=== PATIENT | male | born 1960 | race African-American/Black ===

== ENCOUNTER 2019-07-13 02:11 | Emergency (ER) | payer MEDICARE ==
[~2019-07-13] VITALS: Ht 175.3 cm; Wt 72.6 kg
[2019-07-13] MEDS ORDERED: diphenhdrAMINE HCL 50 MG/1 ML VL IV ONE (03:30)
[2019-07-13 03:37] LABS: Basophils # (auto) 0 uL; Basophils % (auto) 0.5 % (0.0-2.0); Eosinophils # (auto) 0.3 uL; Eosinophils % (auto) 4.9 % (0.0-7.0); Hemoglobin 11.6 g/dL (13.5-17.5); Lymphocytes # (auto) 1.1 uL; Lymphocytes % (auto) 15.5 % (10.0-50.0); Mean Corpuscular Hemoglobin 30.7 pg (28.0-32.0); Mean Corpuscular Hgb Conc. 34.2 g/dL (32.0-36.0); Mean Corpuscular Volume 89.7 fL (80.0-100.0); Monocytes # (auto) 0.3 uL; Monocytes % (auto) 4.1 % (0.0-12.0); Neutrophils # (auto) 5.3 uL; Platelet Count (auto) 166 10^3/uL (140-450); Red Blood Cells 3.79 10^6/uL (4.5-5.90); Red Cell Distribution Width 17.7 % (11.8-14.3)
[2019-07-13 03:56] LABS: Albumin 3.7 g/dL (3.4-5.0); Calcium 7.8 mg/dL (8.5-10.1); Magnesium 2.8 mg/dL (1.6-2.6)
[2019-07-13 04:01] LABS: BUN/Creatinine Ratio 4.3; Bilirubin, Total 0.5 mg/dL (0.2-1.0); Total Protein 7.7 g/dL (6.4-8.2)
[2019-07-13 04:16] LABS: Potassium 6.3 mmol/L (3.5-5.1)
[2019-07-13] MEDS ORDERED: ALBUTEROL SULF 2.5 MG/0.5ML(0.5%) NEB SOLN NEB ONE (04:30)
[2019-07-13] MEDS ORDERED: SODIUM BICARBONATE 8.4% INJ 50ML SYRINGE IV ONE (04:30)
[2019-07-13] MEDS ORDERED: InsuLIN REG 1unit/0.01ml Soln (100units/ml) IV ONE (04:30)
[2019-07-13] MEDS ORDERED: DEXTROSE (50%) 50ML SYRG IV ONE (04:30)
[2019-07-13 04:32] LABS: INR 1.13 (0.9-1.15); Partial Thromboplastin Time 28.5 sec (23.64-32.05)
[2019-07-13 05:29] VITALS: BP 153/88
[2019-07-13 06:16] LABS: Albumin 3.5 g/dL (3.4-5.0); Calcium 7.8 mg/dL (8.5-10.1); Potassium 4.6 mmol/L (3.5-5.1)
[2019-07-13 06:18] LABS: BUN/Creatinine Ratio 4.3
[2019-07-13 06:21] LABS: Bilirubin, Total 0.5 mg/dL (0.2-1.0); Total Protein 7.1 g/dL (6.4-8.2)
[2019-07-13] MEDS ORDERED: LORazepam 2MG/ML-1ML VIAL IV ONE (06:30)
== END 2019-07-13 07:04 | disposition home or self-care (01) ==
LOC: EDBD 02:11 → ER 02:14
DX: F44.9 Dissociative and conversion disorder, unspecified (principal); F41.9 Anxiety disorder, unspecified; I10 Essential (primary) hypertension
CPT/HCPCS: 36415; 71045; 80053; 83735; 83880; 84484; 85025; 85379; 85610; 85730; 93005; 94640; 96374; 96375; 99284; J1200; J1815; J2060; J7042; J7611; 94644

== ENCOUNTER 2019-07-24 14:54 | Emergency (ER) | payer MEDICARE, MEDICAID ==
[~2019-07-24] VITALS: Ht 180.3 cm; Wt 86.2 kg
[2019-07-24] MEDS ORDERED: KETOROLAC TROMETH 30 MG/ML 1ML VIAL IV ONE (20:45)
[2019-07-24] MEDS ORDERED: cefTRIAXone 1GM/50ML D5W 50 ML IV ONE (20:45)
[2019-07-24] MEDS ORDERED: cefTRIAXone SOD 1,000 MG VL IM ONE (21:45)
[2019-07-24] MEDS ORDERED: KETOROLAC TROMETH 60MG/2ML VIAL IM ONE (21:45)
[2019-07-24] MEDS ORDERED: LIDOCAINE 1% HCL (LOCAL ANESTH.) INJ 20ML MDV IJ ONE (21:45)
[2019-07-24 22:17] VITALS: BP 142/80
== END 2019-07-24 22:47 | disposition home or self-care (01) ==
LOC: EDBD 14:54 → ER 15:02
DX: S02.652A Fracture of angle of left mandible, initial encounter for closed fracture (principal); I12.0 Hypertensive chronic kidney disease with stage 5 chronic kidney disease or end stage renal disease; N18.6 End stage renal disease; Y04.2XXA Assault by strike against or bumped into by another person, initial encounter; Y93.89 Activity, other specified; Y92.89 Other specified places as the place of occurrence of the external cause; Y99.8 Other external cause status
CPT/HCPCS: 70486; 96372; 99284; J0696; J1885; J2001

== ENCOUNTER 2019-12-08 01:19 | Inpatient (IN) | payer MEDICARE, MEDICAID ==
[~2019-12-08] VITALS: Ht 172.7 cm; Wt 72.8 kg
[2019-12-08] VITALS (24 sets, daily range): BP systolic 91–129; BP diastolic 47–83
[2019-12-08 02:36] LABS: Basophils # (auto) 0 10 ^3/uL (0-0.2); Basophils % (auto) 0.2 % (0.0-2.0); Eosinophils # (auto) 0 10 ^3/uL (0-0.8); Eosinophils % (auto) 0.3 % (0.0-7.0); Hematocrit 32.4 % (41.0-53.0); Hemoglobin 10.4 g/dL (13.5-17.5); Lymphocytes # (auto) 0.8 10 ^3/uL (0.4-5.4); Lymphocytes % (auto) 13.2 % (10.0-50.0); Mean Corpuscular Hemoglobin 28.6 pg (28.0-32.0); Mean Corpuscular Hgb Conc. 32.2 g/dL (32.0-36.0); Mean Corpuscular Volume 88.7 fL (80.0-100.0); Monocytes # (auto) 0.4 10 ^3/uL (0-1.3); Monocytes % (auto) 7.2 % (0.0-12.0); Neutrophils # (auto) 4.9 10 ^3/uL (1.6-8.6); Neutrophils % (auto) 79.1 % (37.0-80.0); Nucleated Red Blood Cells % 0.2 %; Platelet Count (auto) 209 10^3/uL (140-450); Red Blood Cells 3.65 10^6/uL (4.5-5.90); Red Cell Distribution Width 19.7 % (11.8-14.3); White Blood Cell 6.3 10^3/uL (4.4-10.8)
[2019-12-08 02:39] LABS: Calcium 9.1 mg/dL (8.5-10.1); Magnesium 2.6 mg/dL (1.6-2.6)
[2019-12-08 02:42] LABS: BUN/Creatinine Ratio 5.6
[2019-12-08 02:46] LABS: Total Protein 8.7 g/dL (6.4-8.2)
[2019-12-08 03:50] LABS: INR 1.46 (0.9-1.15); Partial Thromboplastin Time 31.7 sec (23.64-32.05)
[2019-12-08] MEDS: SODIUM CHLORIDE 0.9% 250 ML IV ONE ×2 (08:09→11:10)
[2019-12-08] MEDS ORDERED: FUROSEMIDE 40 MG/4 ML VIAL IV ONE (08:15)
[2019-12-08 10:32] LABS: Lactic Acid w/Reflex 4.1 mmol/L (0.4-2.0)
[2019-12-08] MEDS ORDERED: MORPHINE SULF INJ 2 MG/ML SYRINGE 1ML IV ONE (11:00)
[2019-12-08] MEDS ORDERED: ONDANSETRON HCL 4 MG/2 ML VIAL IV ONE (11:00)
[2019-12-08] MEDS ORDERED: ACETAMINOPHEN 500 MG TAB PO ONE (13:15)
[2019-12-08] MEDS ORDERED: KETOROLAC TROMETH 30 MG/ML 1ML VIAL IV ONE (14:15)
[2019-12-08] MEDS ORDERED: DEXTROSE (50%) 50ML SYRG IV PRN (14:15)
[2019-12-08] MEDS ORDERED: NITROGLYCERIN 0.4 MG SL TAB SL PRN (14:15)
[2019-12-08] MEDS ORDERED: MORPHINE SULF INJ 2 MG/ML SYRINGE 1ML IV PRN (14:15)
[2019-12-08] MEDS ORDERED: SODIUM CHLORIDE 0.9% 250 ML IV ONE (14:30)
[2019-12-08] MEDS ORDERED: cefTRIAXone 1GM/50ML D5W 50 ML IV ONE (14:30)
[2019-12-08] MEDS ORDERED: MIDAZOLAM HCL 1MG/1ML-2 ML VIAL IV ONE (14:30)
[2019-12-08] MEDS ORDERED: fentaNYL CITRATE 100 MCG/2 ML VL ONE (14:55)
[2019-12-08] MEDS ORDERED: MIDAZOLAM HCL 1MG/1ML-2 ML VIAL ONE (14:55)
[2019-12-08] MEDS: InsuLIN REG 1unit/0.01ml Soln (100units/ml) SC SCH ×2 (17:00→22:00)
[2019-12-08] MEDS: ACCU-CHEK COMFORT CURVE STRIP VI SCH ×3 (17:11→22:37)
--- NOTE | 2019-12-08 17:50 | NUR ---
Pt being admitted to ICU JIMBOVIVIANE TATUM admitted to ICU via gurney on habilitative interventionist, and portable 02. Patient transferred to bed, connected to ICU monitoring and oxygen, and weighed by bedscale. Patient oriented to Rissa Johnston, primary RN, unit, room, bed, and unit policies regarding patient care and visiting hours. All questions and concerns addressed, patient verbalized understanding. Pericardial drain moted to medial chest draining bloody drainage. Patient has no complaints of chest pain at this time. Call light in reach, bed in low position. Will continue to monitor.
--- NOTE | 2019-12-08 19:30 | NUR ---
LEFT MESSAGE FOR [facility] PATIENTS NEXT OF KIN PER PATIENTS REQUEST.
--- NOTE | 2019-12-08 20:00 | NUR ---
ADMITTED ON 12/08/2019 WITH DYSPNEA FOR 2 WEEKS, GENERAL BODY ACHES, ANXIETY, AND HYPOTENSION. CXR REVEALED A PERICARDIAL EFFUSION. PROGRAM TECHNICIAN PLACED A PERICARDIAL DRAIN. DRAINING BLOODY FLUID. PATIENT IS A DIALYSIS PATIENT AND HIS LAST DIALYSIS SESSION WAS YESTERDAY. COVID, STREP AND INFLUENZA NEGATIVE. HAS A REJI FISTULA FOR DIALYSIS.RAC 20G WITH NO FLUID RUNNING. RENAL DIET FOR DINNER , ATE 80%.2LNP. PENDING ECHOCARDIOGRAM RESULTS.VSS. SINUS TACHYCARDIA. NORMOTENSIVE. LOW NA 128. PENDING VQ SCAN
--- NOTE | 2019-12-08 20:15 | NUR ---
IN SPEAKING WITH THE PATIENT, DENIES CHEST PAIN, NAUSEA, DSPNEA. LUNGS CLEAR. 2LNP. HUNGRY. PERICARDIAL DRAIN. CURRENTLY NO DRNG IN BAG. DENIES HAVING THE MIGRAINE HE CAME IN WITH , DYSPNEA, LOSS OF TASTE HE WAS HAVING.
--- NOTE | 2019-12-08 23:00 | NUR ---
REQUESTING SOMETHING FOR SLEEP, BUT EVERY TIME I GO IN , HE IS SLEEPING. DENIES PAIN, NAUSEA, DYSPNEA, MIGRAINES. CHANGES POSITION FREQUENTLY. RESTLESS WHILE HE SLEEPS
[2019-12-09] VITALS (82 sets, daily range): BP systolic 90–128; BP diastolic 49–82
--- NOTE | 2019-12-09 | NUR ---
SMALL AMOUNT OF BLOOD IN PERICARDIAL DRAIN BAG. VSS. DRAIN SITE SHOWS NO REDNESS OR SWELLING. ALERT. ORIENTED. MONTES DE OCA WELL. IV SITE SHOWS NO REDNESS OR SWELLING. SINUS TACHYCARDIA WITHOUT ECTOPY.
--- NOTE | 2019-12-09 02:00 | NUR ---
CHECKED DRAIN SITE. NO DRNG FROM THE INSERTION POINT. RED DRNG IN BAG (SMALL AMOUNT). PATIENT MOVES AROUND IN BED FREQUENTLY. SINUS TACHYCARDIA 100, NO ECTOPY. SBP STABLE. IV SITE FLUSHED AND SECURE MORE WITH COBAN.
--- NOTE | 2019-12-09 03:00 | NUR ---
AM LABS DRAWN
[2019-12-09 04:46] LABS: Albumin 2.9 g/dL (3.4-5.0); Calcium 9.1 mg/dL (8.5-10.1); Potassium 5.1 mmol/L (3.5-5.1)
[2019-12-09 04:47] LABS: Basophils # (auto) 0 10 ^3/uL (0-0.2); Basophils % (auto) 0.4 % (0.0-2.0); Eosinophils # (auto) 0 10 ^3/uL (0-0.8); Eosinophils % (auto) 0.1 % (0.0-7.0); Hematocrit 31.6 % (41.0-53.0); Hemoglobin 10.3 g/dL (13.5-17.5); Lymphocytes # (auto) 0.7 10 ^3/uL (0.4-5.4); Lymphocytes % (auto) 8.8 % (10.0-50.0); Mean Corpuscular Hemoglobin 28.5 pg (28.0-32.0); Mean Corpuscular Hgb Conc. 32.6 g/dL (32.0-36.0); Mean Corpuscular Volume 87.5 fL (80.0-100.0); Monocytes # (auto) 0.7 10 ^3/uL (0-1.3); Monocytes % (auto) 7.9 % (0.0-12.0); Neutrophils # (auto) 7.1 10 ^3/uL (1.6-8.6); Neutrophils % (auto) 82.8 % (37.0-80.0); Nucleated Red Blood Cells % 0.4 %; Platelet Count (auto) 193 10^3/uL (140-450); Red Blood Cells 3.61 10^6/uL (4.5-5.90); Red Cell Distribution Width 19.3 % (11.8-14.3); White Blood Cell 8.5 10^3/uL (4.4-10.8)
[2019-12-09 04:58] LABS: BUN/Creatinine Ratio 7.2; Bilirubin, Total 1.2 mg/dL (0.2-1.0)
[2019-12-09] MEDS: InsuLIN REG 1unit/0.01ml Soln (100units/ml) SC SCH ×4 (05:54→21:43)
--- NOTE | 2019-12-09 06:00 | NUR ---
PERICARDIAL DRAIN: 15CC OF RED LIQUID. ACCUCHECK 77, APPLE JUICE GIVEN
--- NOTE | 2019-12-09 07:15 | NUR ---
REPORT RECEIVED FROM MECHANICAL MAINTENANCE NURSE. PATIENT RESTING IN BED AT THIS TIME. RESPIRATIONS EVEN AND UNLABORED. NO SIGNS OF ACUTE DISTRESS NOTED. PERICARDIAL DRAIN IN MEDIAL CHEST WITH NO NOTED DRAINAGE AT THIS TIME. BED IN LOW POSITION, CALL LIGHT IN REACH, BED IN LOW POSITION. WILL CONTINUE TO MONITOR.
[2019-12-09] MEDS: cefTRIAXone 1GM/50ML D5W 50 ML IV SCH (09:11)
--- NOTE | 2019-12-09 11:00 | NUR ---
IV removal IV DC'd from right AC with clean sterile technique, catheter fully intact. Pressure dressing applied to site. Patient tolerated well. IV insertion IV access obtained, via clean sterile technique by inserting 20 gauge catheter at right forearm after 3 attempts. IV secured properly. No trauma to site. Patient tolerated well.
--- NOTE | 2019-12-09 11:05 | NUR ---
DIALYSIS NURSE AT BEDSIDE TO START DIALYSIS PER MD ORDER.
[2019-12-09] MEDS: ACCU-CHEK COMFORT CURVE STRIP VI SCH ×3 (11:30→21:43)
[2019-12-09 12:00] LABS: Albumin 2.7 g/dL (3.4-5.0); Calcium 9.2 mg/dL (8.5-10.1); Potassium 4.8 mmol/L (3.5-5.1)
[2019-12-09] MEDS ORDERED: SODIUM CHL 0.9% 1000 ML BAG XX ONE (12:00)
[2019-12-09 12:07] LABS: BUN/Creatinine Ratio 7.7; Bilirubin, Total 1.1 mg/dL (0.2-1.0); CRP High Sensitivity 7.61 mg/dL (< 0.3); Total Protein 7.5 g/dL (6.4-8.2)
[2019-12-09 12:11] LABS: Hepatitis B Surface Antibody Positive
[2019-12-09 12:50] LABS: Hepatitis A Total Antibody Positive
[2019-12-09 13:30] LABS: Hepatitis B Surface Antigen Negative (Negative)
[2019-12-09 13:31] LABS: Hepatitis A Ab IgM Negative
[2019-12-09 13:32] LABS: Hepatitis B Core IgM Negative
[2019-12-09 13:36] LABS: Hepatitis B Core Total AB Positive; Hepatitis C Antibody Positive (Negative)
--- NOTE | 2019-12-09 14:25 | NUR ---
DIALYSIS COMPLETED 3 LITERS REMOVED. PATIENT TOLERATED WELL. VITAL SIGNS ALL WITHIN NORMAL RANGE.
[2019-12-09] MEDS: MORPHINE SULF INJ 2 MG/ML SYRINGE 1ML IV PRN ×2 (14:43→20:12)
--- NOTE | 2019-12-09 14:50 | NUR ---
SPOKE TO DR PATTERSON AND INFORMED MD PATIENT HAS HAD NO DRAINAGE FROM PERICARDIAL DRAIN. PER MD WILL COME TO REMOVE.
--- NOTE | 2019-12-09 17:01 | NUR ---
PATIENT REFUSED INSULIN. PATIENT REFUSED 2 UNITS OF INSULIN AT 1200 AND 1700. EDUCATED PATIENT ON IMPORTANCE OF REMAINING COMPLIANT, PATIENT STILL DECLINED INSULIN AT THIS TIME.
--- NOTE | 2019-12-09 18:00 | NUR ---
NO DRAINAGE NOTED FROM PERICARDIAL DRAIN THIS 12 HOUR SHIFT.
--- NOTE | 2019-12-09 19:00 | NUR ---
Report received from COCO Najera. Patient has Pericardial Drain intact to medial chest site. Dr. Dick will come to discontinue Pericardial Drain. Will continue with POC; and, will continue to monitor VS & clinical status. Patient complaining of pain 9/10 per report.
--- NOTE | 2019-12-09 19:35 | NUR ---
Upon initial interview and assessment, patient complain of back pain 03/09. Patient instructed account underwriter will medicate him. Addendum: 12/10/19 at 0241 by Garth Huertas RN Patient asked account underwriter what pain medications he has ordered and how often he can get the pain medication. Patient educated he only has Morphine every 4 hours as needed for pain.
--- NOTE | 2019-12-09 20:00 | NUR ---
Snacks given: Gram Crackers.
--- NOTE | 2019-12-09 20:12 | NUR ---
Patient medicated with Morphine 2 mg IVP for 9/10 back pain.
[2019-12-09] MEDS ORDERED: EPOETIN ALFA 4,000 UNIT/ML VL SC ONE (21:00)
--- NOTE | 2019-12-09 21:09 | NUR ---
Patient refused medication after scanning med. Charger unable to Non-Admin medication.
--- NOTE | 2019-12-09 21:43 | NUR ---
Patient refused accucheck, stating he does not want the needle prick; also, unable to give Sliding Scale Regular Insulin units if needed as patient request.
[2019-12-10] VITALS (48 sets, daily range): BP systolic 90–137; BP diastolic 54–90
[2019-12-10] MEDS: MORPHINE SULF INJ 2 MG/ML SYRINGE 1ML IV PRN ×6 (00:42→22:52)
--- NOTE | 2019-12-10 00:42 | NUR ---
Upon entering patient room to medicate patient with Morphine 2 mg VIP, Patient angry due to not responding immediately to his pain seeking drug for pain. Patient states he does not designer/writer to care for him and demanding to speak with CN. Patient instructed designer/writer was caring for another patient under designer/writer care and was involved in the care. Patient refusing medication by designer/writer. ALEXYS Galaviz notified.
--- NOTE | 2019-12-10 00:50 | NUR ---
CN Galaviz at bedside. CN in discussion with patient. CN Galaviz medicate patient with Morphine 2 mg IVP.
--- NOTE | 2019-12-10 03:40 | NUR ---
Senior Java Web Developer at bedside. Blood collected and specimen sent to lab.
[2019-12-10 05:03] LABS: Basophils # (auto) 0 10 ^3/uL (0-0.2); Basophils % (auto) 0.5 % (0.0-2.0); Eosinophils # (auto) 0.1 10 ^3/uL (0-0.8); Hematocrit 32.2 % (41.0-53.0); Hemoglobin 10.4 g/dL (13.5-17.5); Lymphocytes # (auto) 0.7 10 ^3/uL (0.4-5.4); Lymphocytes % (auto) 11.5 % (10.0-50.0); Mean Corpuscular Hemoglobin 28.4 pg (28.0-32.0); Mean Corpuscular Hgb Conc. 32.3 g/dL (32.0-36.0); Mean Corpuscular Volume 88.1 fL (80.0-100.0); Monocytes # (auto) 0.5 10 ^3/uL (0-1.3); Monocytes % (auto) 8.8 % (0.0-12.0); Neutrophils # (auto) 4.8 10 ^3/uL (1.6-8.6); Neutrophils % (auto) 78.2 % (37.0-80.0); Nucleated Red Blood Cells % 0.3 %; Platelet Count (auto) 233 10^3/uL (140-450); Red Blood Cells 3.65 10^6/uL (4.5-5.90); Red Cell Distribution Width 19.5 % (11.8-14.3); White Blood Cell 6.1 10^3/uL (4.4-10.8)
--- NOTE | 2019-12-10 05:14 | NUR ---
Patient declines bath at this time.
[2019-12-10 05:21] LABS: Albumin 2.5 g/dL (3.4-5.0); Calcium 9.1 mg/dL (8.5-10.1); Potassium 4.3 mmol/L (3.5-5.1)
[2019-12-10 05:27] LABS: BUN/Creatinine Ratio 7.4; Bilirubin, Total 0.8 mg/dL (0.2-1.0); Total Protein 7.2 g/dL (6.4-8.2)
[2019-12-10] MEDS: InsuLIN REG 1unit/0.01ml Soln (100units/ml) SC SCH ×4 (07:00→21:47)
[2019-12-10] MEDS: ACCU-CHEK COMFORT CURVE STRIP VI SCH ×4 (07:00→21:47)
--- NOTE | 2019-12-10 07:50 | NUR ---
Assumed care of patient. Patient is AAOX4. Patient is attached to all bedside monitors. Vital signs are stable. No s/s of distress noted. Patient is resting in bed watching tv. Patient c/o generalized pain. Morphine 2mg IVP given. Midsternum pericardial drainage tube noted, no with drainage at this time. Patient advised of POC. Patient verbalized understanding. Safety maintained, will continue to monitor.
[2019-12-10] MEDS: cefTRIAXone 1GM/50ML D5W 50 ML IV SCH (09:02)
[2019-12-10] MEDS: SEVELAMER 800 MG TAB PO SCH ×3 (09:02→17:46)
--- NOTE | 2019-12-10 11:36 | NUR ---
Dr. Kirk at bedside.
--- NOTE | 2019-12-10 12:23 | NUR ---
Patient oob to chair. Sponge bath completed by patient by the sink. Linens changed. Patient denies pain. Safety maintained, will continue to monitor.
--- NOTE | 2019-12-10 13:11 | NUR ---
Lunch tray provided.
--- NOTE | 2019-12-10 14:07 | NUR ---
Dr. Dick at bedside. Pericardial drainage tube dc'd by .
--- NOTE | 2019-12-10 15:28 | NUR ---
Per Dr. Bob, may downgrade patient to telemetry.
--- NOTE | 2019-12-10 16:15 | NUR ---
SBAR report given to COCO [place].
--- NOTE | 2019-12-10 16:46 | NUR ---
PATIENT RESTING IN BED. RESPIRATIONS EVEN AND UNLABORED. A&OX4. PATIENT SITTING IN HIGH FOWLERS. PATIENT DENIES ANY PAIN AT THIS TIME. PATIENT ON TELE MONITOR #28 RUNNING SINUS RHYTHM IN THE 90'S. FISTULA TO REJI. PATIENT IN NO S/S OF DISTRESS. WILL CONTINUE TO MONITOR.
--- NOTE | 2019-12-10 19:20 | NUR ---
OPENING SHIFT NOTE Assumed care of patient who is A&O x4. Currently on 2L NC with no s/s of distress. Denies pain at this time. Patient is ambulatory without the use of assistive devices. PIV in right forearm is intact and patent. Flushed with 10ml NS. Fistula in left upper arm noted. Thrill and bruit present. POC discussed and all questions answered. Bed is in low locked position with side rails up x2. Call light is within reach and patient encouraged to call for assistance when needed. Will continue to monitor for changes.
[2019-12-11 05:05] LABS: Basophils # (auto) 0 10 ^3/uL (0-0.2); Basophils % (auto) 0.6 % (0.0-2.0); Eosinophils # (auto) 0.2 10 ^3/uL (0-0.8); Eosinophils % (auto) 2.8 % (0.0-7.0); Hemoglobin 10.9 g/dL (13.5-17.5); Lymphocytes % (auto) 16.2 % (10.0-50.0); Mean Corpuscular Hemoglobin 28.1 pg (28.0-32.0); Mean Corpuscular Volume 87.8 fL (80.0-100.0); Monocytes # (auto) 0.7 10 ^3/uL (0-1.3); Monocytes % (auto) 12.3 % (0.0-12.0); Neutrophils # (auto) 4.1 10 ^3/uL (1.6-8.6); Neutrophils % (auto) 68.1 % (37.0-80.0); Nucleated Red Blood Cells % 0.5 %; Platelet Count (auto) 283 10^3/uL (140-450); Red Blood Cells 3.88 10^6/uL (4.5-5.90); Red Cell Distribution Width 19.9 % (11.8-14.3)
[2019-12-11 05:18] LABS: Albumin 2.7 g/dL (3.4-5.0); Calcium 9.1 mg/dL (8.5-10.1); Potassium 4.3 mmol/L (3.5-5.1)
[2019-12-11 05:22] LABS: BUN/Creatinine Ratio 7.4; Bilirubin, Total 0.8 mg/dL (0.2-1.0); Total Protein 7.5 g/dL (6.4-8.2)
[2019-12-11 05:36] VITALS: BP 120/63
[2019-12-11] MEDS: ACCU-CHEK COMFORT CURVE STRIP VI SCH ×2 (06:34→11:30)
[2019-12-11] MEDS: InsuLIN REG 1unit/0.01ml Soln (100units/ml) SC SCH ×2 (06:35→11:30)
[2019-12-11] MEDS ORDERED: SODIUM CHL 0.9% 1000 ML BAG XX ONE (07:00)
--- NOTE | 2019-12-11 07:30 | NUR ---
OPENING NOTE RECEIVED REPORT FROM NOC RN. POC ECHOCARDIOGRAM AND CARDIAC CLEARANCE\DR. PATTERSON, DIALYSIS. PATIENT ON DIALYSIS, WITH C/O PAIN, AND DEMANDING PAIN MEDICATION.
[2019-12-11] MEDS: SEVELAMER 800 MG TAB PO SCH (08:27)
[2019-12-11 08:54] VITALS: BP 122/75
--- NOTE | 2019-12-11 09:00 | NUR ---
DIALYSIS COMPLETE RN MYCHAL, REMOVED THREE LITERS OF FLUID. PRESSING DRESSING LEFT ARM, CAN BE REMOVED IN 4-6 HOURS. FINAL BP 117/64 HR 91. NO S/S OF DISTRESS. IEJ
[2019-12-11] MEDS: MORPHINE SULF INJ 2 MG/ML SYRINGE 1ML IV PRN (09:35)
[2019-12-11] MEDS: cefTRIAXone 1GM/50ML D5W 50 ML IV SCH (09:40)
--- NOTE | 2019-12-11 11:30 | NUR ---
PATIENT REFUSED ACCUCHECKS AND IF NEEDED POC BG.
[2019-12-11 13:16] VITALS: BP 116/73
--- NOTE | 2019-12-11 13:25 | NUR ---
AMA PATIENT REQUESTED TO LEAVE AMA. WILL PREPARE PAPER WORK, PATIENT EDUCATED ON CONSEQUENCES OF LEAVING AGAINST MEDICAL ADVISE. PATIENT VERBALIZED UNDERSTANDING.
--- NOTE | 2019-12-11 13:38 | NUR ---
COMMUNICATION NOTIFIED HOSPITAL LIST DR. LOW OF PATIENT LEAVING AMA.
--- NOTE | 2019-12-11 13:45 | NUR ---
AMA PATIENT NOT IN ROOM OR UNIT.
[2019-12-11] MEDS ORDERED: Glucerna Carbsteady SHAKE Vanilla 8oz PO SCH (18:00)
[2019-12-11] MEDS ORDERED: EPOETIN ALFA 4,000 UNIT/ML VL SC ONE (21:00)
== END 2019-12-11 13:45 | disposition left against medical advice (07) | DRG 682 ==
LOC: ER 01:19 → CATH 1 14:15 → ICU WEST 14:16 → TELE-CENTR 12-10 16:34
PROVIDERS: ADMIT Internal Medicine Cardiovascular Disease; ATTEND Internal Medicine
PROC: 0W9D30Z Drainage of Pericardial Cavity with Drainage Device, Percutaneous Approach (ICD-10-PCS; principal; 2019-12-08)
DX: I12.0 Hypertensive chronic kidney disease with stage 5 chronic kidney disease or end stage renal disease (principal); N18.6 End stage renal disease; I31.4 Cardiac tamponade; E44.0 Moderate protein-calorie malnutrition; N25.81 Secondary hyperparathyroidism of renal origin; I31.3 Pericardial effusion (noninflammatory); I32 Pericarditis in diseases classified elsewhere; M79.10 Myalgia, unspecified site; R60.9 Edema, unspecified; I95.9 Hypotension, unspecified; D63.1 Anemia in chronic kidney disease; E11.22 Type 2 diabetes mellitus with diabetic chronic kidney disease; E78.5 Hyperlipidemia, unspecified; F41.9 Anxiety disorder, unspecified; F17.200 Nicotine dependence, unspecified, uncomplicated; B19.20 Unspecified viral hepatitis C without hepatic coma; Z99.2 Dependence on renal dialysis; Z68.24 Body mass index [BMI] 24.0-24.9, adult; Z72.89 Other problems related to lifestyle; Z20.828 Contact with and (suspected) exposure to other viral communicable diseases
CPT/HCPCS: 36415; 71045; 76930; 80053; 80074; 82728; 82962; 83036; 83605; 83735; 83880; 83986; 84100; 84484; 84550; 85025; 85379; 85610; 85652; 85730; 86141; 86658; 86703; 86704; 86706; 86708; 86803; 86850; 86900; 86901; 87040; 87070; 87081; 87205; 87340; 87804; 87880; 89051; 90935; 93005; 93306; 99152; 99291; G0378; J0696; J1815; J2250; J2405

== ENCOUNTER 2019-12-16 23:21 | Inpatient (IN) | payer MEDICARE, MEDICAID ==
[~2019-12-16] VITALS: Ht 180.3 cm; Wt 72.2 kg
[2019-12-16] MEDS ORDERED: diphenhdrAMINE HCL 50 MG/1 ML VL IV ONE ×2 (23:45)
[2019-12-16] MEDS ORDERED: LORazepam 2MG/ML-1ML VIAL IV ONE ×2 (23:45)
[2019-12-17] LABS: Basophils # (auto) 0 10 ^3/uL (0-0.2); Basophils % (auto) 0.3 % (0.0-2.0); Eosinophils # (auto) 0.1 10 ^3/uL (0-0.8); Eosinophils % (auto) 1.2 % (0.0-7.0); Hematocrit 32.7 % (41.0-53.0); Hemoglobin 10.5 g/dL (13.5-17.5); Lymphocytes # (auto) 0.8 10 ^3/uL (0.4-5.4); Lymphocytes % (auto) 16.2 % (10.0-50.0); Mean Corpuscular Hemoglobin 28.4 pg (28.0-32.0); Mean Corpuscular Hgb Conc. 32.3 g/dL (32.0-36.0); Mean Corpuscular Volume 88.1 fL (80.0-100.0); Monocytes # (auto) 0.5 10 ^3/uL (0-1.3); Monocytes % (auto) 9.1 % (0.0-12.0); Neutrophils # (auto) 3.8 10 ^3/uL (1.6-8.6); Neutrophils % (auto) 73.2 % (37.0-80.0); Nucleated Red Blood Cells % 0.2 %; Platelet Count (auto) 211 10^3/uL (140-450); Red Blood Cells 3.71 10^6/uL (4.5-5.90); White Blood Cell 5.2 10^3/uL (4.4-10.8)
[2019-12-17 00:16] LABS: INR 1.29 (0.9-1.15); Partial Thromboplastin Time 28.4 sec (23.64-32.05)
[2019-12-17 00:26] LABS: Albumin 3.1 g/dL (3.4-5.0); BUN/Creatinine Ratio 4.5; Calcium 9.7 mg/dL (8.5-10.1); Magnesium 2.6 mg/dL (1.6-2.6); Potassium 4.2 mmol/L (3.5-5.1)
[2019-12-17 00:30] LABS: Bilirubin, Total 1.2 mg/dL (0.2-1.0); Total Protein 8.3 g/dL (6.4-8.2)
[2019-12-17] MEDS ORDERED: LORazepam 2MG/ML-1ML VIAL IV ONE (01:30)
[2019-12-17] MEDS ORDERED: DEXTROSE (50%) 50ML SYRG IV PRN (09:15)
[2019-12-17] MEDS ORDERED: traMADol HCL 50 MG TAB PO PRN ×2 (09:15→22:00)
[2019-12-17] MEDS ORDERED: ACETAMINOPHEN 500 MG TAB PO PRN (09:15)
[2019-12-17] MEDS ORDERED: LACTULOSE 20Gm/30ML SOLN PO PRN (09:15)
[2019-12-17] MEDS ORDERED: MORPHINE SULF INJ 2 MG/ML SYRINGE 1ML IV PRN (09:15)
[2019-12-17] MEDS ORDERED: PROMETHAZINE HCL 25 MG/ML 1ML IV PRN (09:15)
[2019-12-17] MEDS ORDERED: NITROGLYCERIN 0.4 MG SL TAB SL PRN (09:15)
[2019-12-17] MEDS ORDERED: FAMOTIDINE 20 MG TAB PO SCH (10:00)
[2019-12-17] MEDS: NITROGLYCERIN 0.2MG/HR TOPICAL PATCH TD SCH (10:10)
[2019-12-17] MEDS: FUROSEMIDE 40 MG/4 ML VIAL IV SCH (10:10)
[2019-12-17] MEDS: CARVEDILOL 3.125 MG TAB PO SCH ×2 (10:17→18:02)
[2019-12-17] MEDS: InsuLIN REG 1unit/0.01ml Soln (100units/ml) SC SCH ×3 (11:30→22:07)
[2019-12-17] MEDS: ACCU-CHEK COMFORT CURVE STRIP VI SCH ×3 (11:45→22:01)
[2019-12-17 13:00] VITALS: BP 136/89
[2019-12-17] MEDS: SODIUM CHLOR 0.9% PF (SALINE LOCK) 10ML VIAL/SYR IV SCH ×2 (14:05→22:00)
[2019-12-17 16:38] VITALS: BP 113/70
[2019-12-17 21:56] VITALS: BP 122/58
[2019-12-17] MEDS: MORPHINE SULF INJ 2 MG/ML SYRINGE 1ML IV PRN (22:01)
[2019-12-18] MEDS: MORPHINE SULF INJ 2 MG/ML SYRINGE 1ML IV PRN ×4 (03:27→22:10)
[2019-12-18 05:01] VITALS: BP 123/82
[2019-12-18 06:09] LABS: Potassium 4.5 mmol/L (3.5-5.1)
[2019-12-18 06:18] LABS: Albumin 2.7 g/dL (3.4-5.0); BUN/Creatinine Ratio 5.5
[2019-12-18 06:26] LABS: Bilirubin, Total 0.9 mg/dL (0.2-1.0); Total Protein 7.2 g/dL (6.4-8.2)
[2019-12-18] MEDS: InsuLIN REG 1unit/0.01ml Soln (100units/ml) SC SCH ×4 (06:34→21:10)
[2019-12-18] MEDS: SODIUM CHLOR 0.9% PF (SALINE LOCK) 10ML VIAL/SYR IV SCH ×3 (06:34→21:10)
[2019-12-18] MEDS: ACCU-CHEK COMFORT CURVE STRIP VI SCH ×4 (06:34→21:10)
[2019-12-18] MEDS ORDERED: SODIUM CHL 0.9% 1000 ML BAG XX ONE (07:00)
[2019-12-18 07:30] VITALS: BP 125/77
[2019-12-18] MEDS ORDERED: LIDOCAINE 1% HCL (LOCAL ANESTH.) INJ 20ML MDV ID ONE (07:45)
[2019-12-18] MEDS: FAMOTIDINE 20 MG TAB PO SCH (08:57)
[2019-12-18] MEDS: CARVEDILOL 3.125 MG TAB PO SCH ×2 (08:58→18:02)
[2019-12-18] MEDS: FUROSEMIDE 40 MG/4 ML VIAL IV SCH (08:59)
[2019-12-18 09:00] VITALS: BP 125/77
[2019-12-18] MEDS: NITROGLYCERIN 0.2MG/HR TOPICAL PATCH TD SCH (09:04)
[2019-12-18] MEDS ORDERED: LIDOCAINE 1% (LOCAL ANESTH.) PF 5ml SDV ID ONE (10:45)
[2019-12-18] MEDS ORDERED: diphenhdrAMINE HCL 50 MG/1 ML VL IM ONE (12:15)
[2019-12-18 13:00] VITALS: BP 116/74
[2019-12-18] MEDS ORDERED: diphenhdrAMINE HCL 50 MG/1 ML VL IV ONE (13:00)
[2019-12-18] MEDS: LORazepam 2MG/ML-1ML VIAL IV PRN (14:59)
[2019-12-18 17:00] VITALS: BP 120/66
[2019-12-18 22:00] VITALS: BP 112/76
[2019-12-19] MEDS: TEMAZEPAM 15 MG CAP PO PRN ×2 (00:50→22:43)
[2019-12-19 05:41] VITALS: BP 112/69
[2019-12-19] MEDS: SODIUM CHLOR 0.9% PF (SALINE LOCK) 10ML VIAL/SYR IV SCH ×3 (06:00→22:51)
[2019-12-19] MEDS: MORPHINE SULF INJ 2 MG/ML SYRINGE 1ML IV PRN ×3 (06:05→21:04)
[2019-12-19] MEDS: InsuLIN REG 1unit/0.01ml Soln (100units/ml) SC SCH ×4 (07:00→22:00)
[2019-12-19] MEDS: ACCU-CHEK COMFORT CURVE STRIP VI SCH ×4 (07:02→22:00)
[2019-12-19] MEDS: CARVEDILOL 3.125 MG TAB PO SCH ×2 (07:50→17:56)
[2019-12-19 08:18] VITALS: BP 101/65
[2019-12-19] MEDS ORDERED: SEVE800T8 PO (08:35)
[2019-12-19] MEDS ORDERED: NEPVITT PO (08:35)
[2019-12-19] MEDS ORDERED: ASPI81CH43 GT (08:35)
[2019-12-19 09:00] VITALS: BP 101/65
[2019-12-19] MEDS: FUROSEMIDE 40 MG/4 ML VIAL IV SCH (09:42)
[2019-12-19] MEDS: NITROGLYCERIN 0.2MG/HR TOPICAL PATCH TD SCH (09:42)
[2019-12-19] MEDS: SEVELAMER 800 MG TAB PO SCH ×2 (12:10→17:56)
[2019-12-19 13:00] VITALS: BP 112/68
[2019-12-19 17:00] VITALS: BP 118/70
[2019-12-19 22:00] VITALS: BP 107/67
[2019-12-19] MEDS: LORazepam 2MG/ML-1ML VIAL IV PRN (22:50)
[2019-12-20] VITALS (8 sets, daily range): BP systolic 102–152; BP diastolic 58–97
[2019-12-20] MEDS: LORazepam 2MG/ML-1ML VIAL IV PRN ×2 (04:23→10:50)
[2019-12-20] MEDS: MORPHINE SULF INJ 2 MG/ML SYRINGE 1ML IV PRN (04:24)
[2019-12-20] MEDS: InsuLIN REG 1unit/0.01ml Soln (100units/ml) SC SCH ×3 (07:00→17:00)
[2019-12-20] MEDS: ACCU-CHEK COMFORT CURVE STRIP VI SCH ×3 (07:00→17:00)
[2019-12-20] MEDS: SODIUM CHLOR 0.9% PF (SALINE LOCK) 10ML VIAL/SYR IV SCH ×2 (07:39→14:00)
[2019-12-20] MEDS: SEVELAMER 800 MG TAB PO SCH ×3 (07:50→18:00)
[2019-12-20] MEDS: CARVEDILOL 3.125 MG TAB PO SCH ×2 (07:51→18:00)
[2019-12-20] MEDS: NITROGLYCERIN 0.2MG/HR TOPICAL PATCH TD SCH (10:00)
[2019-12-20] MEDS ORDERED: ASPirin 81 mg TAB PO SCH (10:00)
[2019-12-20] MEDS ORDERED: B-COMPLEX W/ C & FOLIC ACID(NEPHROVITE TAB) PO SCH (10:00)
[2019-12-20] MEDS: FAMOTIDINE 20 MG TAB PO SCH (10:00)
[2019-12-20] MEDS: FUROSEMIDE 40 MG/4 ML VIAL IV SCH (10:50)
== END 2019-12-20 21:15 | disposition home or self-care (01) | DRG 280 ==
LOC: ER 23:21 → EDBD 23:21 → TELE 23:22 → TELE-WESTW 12-17 10:32
PROVIDERS: ADMIT Internal Medicine; ATTEND Family Medicine
PROC: 5A1D70Z Performance of Urinary Filtration, Intermittent, Less than 6 Hours Per Day (ICD-10-PCS; principal; 2019-12-18)
DX: I13.2 Hypertensive heart and chronic kidney disease with heart failure and with stage 5 chronic kidney disease, or end stage renal disease (principal); I21.A1 Myocardial infarction type 2; I50.23 Acute on chronic systolic (congestive) heart failure; J96.20 Acute and chronic respiratory failure, unspecified whether with hypoxia or hypercapnia; N18.6 End stage renal disease; N25.81 Secondary hyperparathyroidism of renal origin; D68.9 Coagulation defect, unspecified; I42.9 Cardiomyopathy, unspecified; E11.22 Type 2 diabetes mellitus with diabetic chronic kidney disease; F41.9 Anxiety disorder, unspecified; G24.01 Drug induced subacute dyskinesia; D63.1 Anemia in chronic kidney disease; B19.20 Unspecified viral hepatitis C without hepatic coma; E78.5 Hyperlipidemia, unspecified; Z99.2 Dependence on renal dialysis; Z79.84 Long term (current) use of oral hypoglycemic drugs; Z82.49 Family history of ischemic heart disease and other diseases of the circulatory system
CPT/HCPCS: 36415; 70450; 71045; 80053; 82140; 82550; 82962; 83036; 83735; 83880; 84484; 85025; 85610; 85652; 85730; 86141; 87081; 90935; 93005; 93306; G0378; J1815; J2001

== ENCOUNTER 2021-07-18 13:35 | Inpatient (IN) | payer MEDICARE, MEDICAID ==
[~2021-07-18] VITALS: Ht 175.3 cm; Wt 72.6 kg
[~2021-07-18 13:35] MED LIST: ASPI81CH43 GT; B-CO1TAB33 PO; SEVE800T8 PO
[2021-07-18 15:59] LABS: Basophils # (auto) 0 10 ^3/uL (0-0.2); Basophils % (auto) 0.6 % (0.0-2.0); Eosinophils # (auto) 0.1 10 ^3/uL (0-0.8); Eosinophils % (auto) 3.4 % (0.0-7.0); Hematocrit 31.5 % (41.0-53.0); Hemoglobin 10.3 g/dL (13.5-17.5); Lymphocytes # (auto) 0.7 10 ^3/uL (0.4-5.4); Lymphocytes % (auto) 23.2 % (10.0-50.0); Mean Corpuscular Hemoglobin 30.7 pg (28.0-32.0); Mean Corpuscular Hgb Conc. 32.5 g/dL (32.0-36.0); Mean Corpuscular Volume 94.3 fL (80.0-100.0); Monocytes # (auto) 0.2 10 ^3/uL (0-1.3); Monocytes % (auto) 6.4 % (0.0-12.0); Neutrophils # (auto) 1.9 10 ^3/uL (1.6-8.6); Neutrophils % (auto) 66.4 % (37.0-80.0); Nucleated Red Blood Cells % 0.1 %; Red Blood Cells 3.34 10^6/uL (4.5-5.90); Red Cell Distribution Width 19.9 % (11.8-14.3); White Blood Cell 2.9 10^3/uL (4.4-10.8)
[2021-07-18 16:28] LABS: Potassium 5.5 mmol/L (3.5-5.1)
[2021-07-18 16:46] LABS: Albumin 3.4 g/dL (3.4-5.0); BUN/Creatinine Ratio 5.1; Bilirubin, Total 0.7 mg/dL (0.2-1.0); Calcium 8.5 mg/dL (8.5-10.1); Magnesium 3.4 mg/dL (1.6-2.6)
[2021-07-19] MEDS ORDERED: MORPHINE SULFATE INJECTION 2 MG/ML SYRG IV PRN (05:45)
[2021-07-19] MEDS ORDERED: SODIUM ZIRCONIUM CYCL 10 GM PAK PO ONE ×2 (05:45→12:45)
[2021-07-19] MEDS ORDERED: ACETAMINOPHEN 325 MG TAB PO PRN (05:45)
[2021-07-19] MEDS ORDERED: PANTOPRAZOLE 40 MG TAB PO ONE (05:45)
[2021-07-19] MEDS ORDERED: ONDANSETRON HCL 4 MG/2 ML VIAL IV PRN (05:45)
[2021-07-19] MEDS ORDERED: NITROGLYCERIN 0.4 MG SL TAB SL PRN (05:45)
[2021-07-19] MEDS ORDERED: DEXTROSE (50%) 50ML SYRG IV PRN (05:45)
[2021-07-19] MEDS: InsuLIN REG 1unit/0.01ml Soln (100units/ml) SC SCH ×4 (07:00→22:00)
[2021-07-19] MEDS: SEVELAMER 800 MG TAB PO SCH ×3 (09:00→18:32)
[2021-07-19 09:47] LABS: Anion Gap 17 (5-15); BUN/Creatinine Ratio 5.9; Blood Urea Nitrogen 55 mg/dL (7-18); Calcium 8.5 mg/dL (8.5-10.1); Carbon Dioxide 29 mmol/L (21-32); Chloride 88 mmol/L (98-107); GFR African American 7 mL/min; GFR Non-African American 6 mL/min; Sodium 134 mmol/L (136-145)
[2021-07-19] MEDS: CARVEDILOL 3.125 MG TAB PO SCH ×2 (10:00→22:37)
[2021-07-19] MEDS: B-COMPLEX W/ C & FOLIC ACID(NEPHROVITE TAB) PO SCH (10:00)
[2021-07-19] MEDS: PANTOPRAZOLE 40 MG TAB PO SCH (10:00)
[2021-07-19 10:09] LABS: Glucose 35 mg/dL (74-106); Potassium 6.1 mmol/L (3.5-5.1)
[2021-07-19] MEDS: ACCU-CHEK COMFORT CURVE STRIP VI SCH ×4 (10:09→22:38)
[2021-07-19] MEDS ORDERED: DEXTROSE 50% SYRINGE 50 ML IV ONE (10:14)
[2021-07-19] MEDS: ASPirin 81 mg TAB PO SCH (10:38)
[2021-07-19] MEDS ORDERED: CALCIUM CHL 100MG/ML 1,000 MG in D5W 5% 100 ML IV ONE (12:45)
[2021-07-19] MEDS ORDERED: SODIUM BICARBONATE 8.4 % INJ 50ML VIAL IV ONE (12:45)
[2021-07-19 17:00] VITALS: BP 123/80
[2021-07-19] MEDS ORDERED: SODIUM CHL 0.9% 1000 ML BAG XX ONE (17:00)
[2021-07-19] MEDS: DOBUTamine 1000MCG/ML 250 ML IV SCH (17:33)
[2021-07-19 17:54] VITALS: BP 120/78
[2021-07-19 22:00] VITALS: BP 136/83
[2021-07-19] MEDS: ATORVASTATIN 20 MG TAB PO SCH (22:38)
[2021-07-19] MEDS: SACUBITRIL-VALSARTAN 24mg/26mg TAB PO SCH (22:38)
[2021-07-20 05:00] VITALS: BP 132/75
[2021-07-20] MEDS: ACCU-CHEK COMFORT CURVE STRIP VI SCH ×4 (06:13→21:45)
[2021-07-20] MEDS: InsuLIN REG 1unit/0.01ml Soln (100units/ml) SC SCH ×4 (06:43→21:45)
[2021-07-20] MEDS: SEVELAMER 800 MG TAB PO SCH ×3 (08:00→16:44)
[2021-07-20 09:00] VITALS: BP 104/61
[2021-07-20] MEDS ORDERED: ANGIOMAX 250 MG VIAL IV ONE (09:02)
[2021-07-20] MEDS ORDERED: VERAPAMIL 2.5MG/ML INJ 2ML VIAL IV ONE (09:03)
[2021-07-20] MEDS ORDERED: HEPARIN SODIUM (PORCINE) 5000 UNITS/ML 1ML VIAL ONE (09:03)
[2021-07-20] MEDS ORDERED: fentaNYL CITRATE 100 MCG/2 ML VL ONE (09:03)
[2021-07-20] MEDS ORDERED: MIDAZOLAM HCL 2MG/2ML 2ml VIAL (1mg/ml) ONE (09:04)
[2021-07-20] MEDS ORDERED: SODIUM CHL 0.9% 0 ML ONE (09:04)
[2021-07-20] MEDS: ASPirin 81 mg TAB PO SCH (09:16)
[2021-07-20] MEDS: CARVEDILOL 3.125 MG TAB PO SCH ×2 (09:18→21:50)
[2021-07-20] MEDS: B-COMPLEX W/ C & FOLIC ACID(NEPHROVITE TAB) PO SCH (09:19)
[2021-07-20] MEDS: SACUBITRIL-VALSARTAN 24mg/26mg TAB PO SCH ×2 (09:19→21:50)
[2021-07-20] MEDS: PANTOPRAZOLE 40 MG TAB PO SCH (09:19)
[2021-07-20] MEDS ORDERED: AZITHROMYCIN 500MG/ 250ML 250 ML IV ONE (11:30)
[2021-07-20] MEDS ORDERED: REMDESIVIR PER PHARMACY 0 ML IV SCH (11:30)
[2021-07-20 12:00] VITALS: BP 115/68
[2021-07-20] MEDS ORDERED: AZITHROMYCIN 250 MG TAB PO ONE ×2 (12:45→12:55)
[2021-07-20] MEDS: IVERMECTIN 3 MG TAB PO SCH (13:03)
[2021-07-20] MEDS ORDERED: REMDESIVIR 200 MG in NS 210ml LOADING DOSE ADULT IV ONE (15:00)
[2021-07-20 15:12] LABS: Hemoglobin 10.5 g/dL (13.5-17.5); Mean Corpuscular Hemoglobin 30.6 pg (28.0-32.0); Mean Corpuscular Hgb Conc. 32.7 g/dL (32.0-36.0); Mean Corpuscular Volume 93.4 fL (80.0-100.0); Red Blood Cells 3.42 10^6/uL (4.5-5.90); Red Cell Distribution Width 19.2 % (11.8-14.3); White Blood Cell 2.9 10^3/uL (4.4-10.8)
[2021-07-20] MEDS: DOBUTamine 1000MCG/ML 250 ML IV SCH (15:13)
[2021-07-20 15:24] LABS: Band Neutrophils % (manual) 0; Basophils % (manual) 0 (0.0-2.0); Blast Cells 0; Metamyelocytes % 0; Myelocytes % 0; Promyelocytes % 0; Reactive Lymphocytes 0
[2021-07-20 15:29] LABS: INR 1.65 (0.9-1.15); Partial Thromboplastin Time 38.4 sec (23.6-33.0)
[2021-07-20 15:35] LABS: Albumin 3.4 g/dL (3.4-5.0); Calcium 8.2 mg/dL (8.5-10.1); Magnesium 3.1 mg/dL (1.6-2.6); Potassium 3.7 mmol/L (3.5-5.1)
[2021-07-20 15:43] LABS: BUN/Creatinine Ratio 6.2; CRP High Sensitivity 5.03 mg/dL (< 0.3); Total Protein 7.8 g/dL (6.4-8.2)
[2021-07-20 15:48] LABS: Thyroid Stimulating Hormone 1.05 uIU/mL (0.358-3.74)
[2021-07-20 16:00] VITALS: BP 123/71
[2021-07-20 16:02] LABS: Eosinophils % (manual) 4 (0-7); Lymphocytes % (manual) 13 (10.0-50.0); Monocytes % (manual) 5 (0-12)
[2021-07-20] MEDS ORDERED: IODIXANOL 320MG/ML 100ML BTL IV ONE (16:43)
[2021-07-20] MEDS ORDERED: LIDOCAINE 2%HCL (LOCAL ANESTH.) INJ 20ML MDV ONE (16:43)
[2021-07-20 21:50] VITALS: BP_SYST 109; BP_SYST 113; BP_DIAS 70
[2021-07-20] MEDS: ATORVASTATIN 20 MG TAB PO SCH (21:51)
[2021-07-21] MEDS: HYDROcodone-ACET 5/325MG TAB PO PRN ×4 (00:35→23:09)
[2021-07-21 05:00] VITALS: BP 128/76
[2021-07-21 05:29] LABS: Basophils # (auto) 0 10 ^3/uL (0-0.2); Basophils % (auto) 0.8 % (0.0-2.0); Eosinophils # (auto) 0.1 10 ^3/uL (0-0.8); Eosinophils % (auto) 2.5 % (0.0-7.0); Hematocrit 29.8 % (41.0-53.0); Hemoglobin 9.8 g/dL (13.5-17.5); Lymphocytes # (auto) 0.4 10 ^3/uL (0.4-5.4); Lymphocytes % (auto) 16.5 % (10.0-50.0); Mean Corpuscular Hemoglobin 30.7 pg (28.0-32.0); Mean Corpuscular Hgb Conc. 32.8 g/dL (32.0-36.0); Mean Corpuscular Volume 93.8 fL (80.0-100.0); Monocytes # (auto) 0.2 10 ^3/uL (0-1.3); Neutrophils % (auto) 74.2 % (37.0-80.0); Nucleated Red Blood Cells % 0.4 %; Red Blood Cells 3.18 10^6/uL (4.5-5.90); Red Cell Distribution Width 19.2 % (11.8-14.3); White Blood Cell 2.6 10^3/uL (4.4-10.8)
[2021-07-21 05:56] LABS: Calcium 7.6 mg/dL (8.5-10.1); Potassium 4.8 mmol/L (3.5-5.1)
[2021-07-21 06:01] LABS: BUN/Creatinine Ratio 6.2; Bilirubin, Total 0.7 mg/dL (0.2-1.0); Total Protein 7.3 g/dL (6.4-8.2)
[2021-07-21] MEDS: ACCU-CHEK COMFORT CURVE STRIP VI SCH ×4 (06:46→21:56)
[2021-07-21] MEDS: InsuLIN REG 1unit/0.01ml Soln (100units/ml) SC SCH ×4 (06:46→21:57)
[2021-07-21] MEDS: DexAMETHasone SOD PHOS 10MG/1ML VIAL INJ IV SCH (08:15)
[2021-07-21] MEDS: SEVELAMER 800 MG TAB PO SCH ×3 (08:15→16:31)
[2021-07-21] MEDS: SACUBITRIL-VALSARTAN 24mg/26mg TAB PO SCH ×2 (08:15→21:56)
[2021-07-21] MEDS: B-COMPLEX W/ C & FOLIC ACID(NEPHROVITE TAB) PO SCH (08:15)
[2021-07-21] MEDS: ASPirin 81 mg TAB PO SCH (08:15)
[2021-07-21] MEDS: PANTOPRAZOLE 40 MG TAB PO SCH (08:16)
[2021-07-21] MEDS: AZITHROMYCIN 250 MG TAB PO SCH (08:16)
[2021-07-21] MEDS: IVERMECTIN 3 MG TAB PO SCH (08:16)
[2021-07-21 09:00] VITALS: BP 133/76
[2021-07-21] MEDS: CARVEDILOL 3.125 MG TAB PO SCH ×2 (10:00→21:55)
[2021-07-21] MEDS ORDERED: AZITHROMYCIN 500MG/ 250ML 250 ML IV SCH (10:00)
[2021-07-21] MEDS: ASCORBIC ACID 500 MG TAB PO SCH ×2 (11:59→21:56)
[2021-07-21] MEDS: ZINC SULFATE 220mg CAP or TAB PO SCH (11:59)
[2021-07-21] MEDS: CHOLECALCIFEROL (VITD3) 2,000 UNIT CAP/TAB PO SCH (11:59)
[2021-07-21 12:48] VITALS: BP 125/76
[2021-07-21] MEDS: REMDESIVIR 100mg 100 MG in SODIUM CHL 0.9% 230 ML IV SCH (15:00)
[2021-07-21 16:50] VITALS: BP 146/83
[2021-07-21] MEDS: ATORVASTATIN 20 MG TAB PO SCH (21:56)
[2021-07-21 22:00] VITALS: BP 131/77
[2021-07-22 05:00] VITALS: BP 136/86
[2021-07-22] MEDS: ACCU-CHEK COMFORT CURVE STRIP VI SCH ×4 (06:49→20:04)
[2021-07-22] MEDS: InsuLIN REG 1unit/0.01ml Soln (100units/ml) SC SCH ×3 (06:51→20:23)
[2021-07-22] MEDS ORDERED: SODIUM CHL 0.9% 1000 ML BAG XX ONE (07:00)
[2021-07-22 07:47] LABS: Potassium 5.1 mmol/L (3.5-5.1)
[2021-07-22 07:55] LABS: Albumin 3.4 g/dL (3.4-5.0); BUN/Creatinine Ratio 7.5; Bilirubin, Total 0.6 mg/dL (0.2-1.0); Calcium 7.9 mg/dL (8.5-10.1)
[2021-07-22] MEDS: SEVELAMER 800 MG TAB PO SCH ×3 (08:28→20:04)
[2021-07-22 09:00] VITALS: BP 142/95
[2021-07-22] MEDS: SACUBITRIL-VALSARTAN 24mg/26mg TAB PO SCH ×2 (10:14→20:03)
[2021-07-22] MEDS: DexAMETHasone SOD PHOS 10MG/1ML VIAL INJ IV SCH (10:14)
[2021-07-22] MEDS: B-COMPLEX W/ C & FOLIC ACID(NEPHROVITE TAB) PO SCH (10:14)
[2021-07-22] MEDS: AZITHROMYCIN 250 MG TAB PO SCH (10:15)
[2021-07-22] MEDS: PANTOPRAZOLE 40 MG TAB PO SCH (10:15)
[2021-07-22] MEDS: CARVEDILOL 3.125 MG TAB PO SCH ×2 (10:15→20:03)
[2021-07-22] MEDS: ZINC SULFATE 220mg CAP or TAB PO SCH (10:15)
[2021-07-22] MEDS: ASPirin 81 mg TAB PO SCH (10:15)
[2021-07-22] MEDS: CHOLECALCIFEROL (VITD3) 2,000 UNIT CAP/TAB PO SCH (10:15)
[2021-07-22] MEDS: ASCORBIC ACID 500 MG TAB PO SCH ×2 (10:16→20:02)
[2021-07-22] MEDS: HYDROcodone-ACET 5/325MG TAB PO PRN (10:17)
[2021-07-22] MEDS: IVERMECTIN 3 MG TAB PO SCH (10:17)
[2021-07-22] MEDS: REMDESIVIR 100mg 100 MG in SODIUM CHL 0.9% 230 ML IV SCH (15:03)
[2021-07-22 17:00] VITALS: BP 128/82
[2021-07-22] MEDS: ATORVASTATIN 20 MG TAB PO SCH (20:02)
[2021-07-22] MEDS ORDERED: EPOETIN ALFA-EPBX 4,000 UNIT/ML VIAL SC ONE (21:00)
[2021-07-22 22:00] VITALS: BP 137/78
[2021-07-23] MEDS: ACCU-CHEK COMFORT CURVE STRIP VI SCH ×2 (06:58→11:30)
[2021-07-23] MEDS: InsuLIN REG 1unit/0.01ml Soln (100units/ml) SC SCH ×2 (06:58→11:30)
[2021-07-23] MEDS: SEVELAMER 800 MG TAB PO SCH ×3 (08:03→18:00)
[2021-07-23 08:16] LABS: Potassium 4.5 mmol/L (3.5-5.1)
[2021-07-23 08:25] LABS: Albumin 3.4 g/dL (3.4-5.0); BUN/Creatinine Ratio 7.3; Bilirubin, Total 0.6 mg/dL (0.2-1.0); Calcium 8.2 mg/dL (8.5-10.1)
[2021-07-23] MEDS: HYDROcodone-ACET 5/325MG TAB PO PRN (08:43)
[2021-07-23] MEDS: DexAMETHasone SOD PHOS 10MG/1ML VIAL INJ IV SCH (10:07)
[2021-07-23] MEDS: ASPirin 81 mg TAB PO SCH (10:08)
[2021-07-23] MEDS: ZINC SULFATE 220mg CAP or TAB PO SCH (10:08)
[2021-07-23] MEDS: B-COMPLEX W/ C & FOLIC ACID(NEPHROVITE TAB) PO SCH (10:08)
[2021-07-23] MEDS: SACUBITRIL-VALSARTAN 24mg/26mg TAB PO SCH ×2 (10:08→21:26)
[2021-07-23] MEDS: PANTOPRAZOLE 40 MG TAB PO SCH (10:09)
[2021-07-23] MEDS: CHOLECALCIFEROL (VITD3) 2,000 UNIT CAP/TAB PO SCH (10:09)
[2021-07-23] MEDS: ASCORBIC ACID 500 MG TAB PO SCH ×2 (10:09→21:27)
[2021-07-23] MEDS: IVERMECTIN 3 MG TAB PO SCH (10:09)
[2021-07-23] MEDS: AZITHROMYCIN 250 MG TAB PO SCH (10:10)
[2021-07-23] MEDS: CARVEDILOL 3.125 MG TAB PO SCH ×2 (10:35→21:27)
[2021-07-23 12:40] VITALS: BP 132/75
[2021-07-23] MEDS: REMDESIVIR 100mg 100 MG in SODIUM CHL 0.9% 230 ML IV SCH (15:35)
[2021-07-23] MEDS: HYDROmorphone HCL 2 MG TAB PO PRN (20:46)
[2021-07-23] MEDS: ATORVASTATIN 20 MG TAB PO SCH (21:26)
[2021-07-23 22:00] VITALS: BP 164/88
[2021-07-24] MEDS: HYDROmorphone HCL 2 MG TAB PO PRN (03:09)
[2021-07-24 05:00] VITALS: BP 144/86
[2021-07-24] MEDS ORDERED: SODIUM CHL 0.9% 1000 ML BAG XX ONE (07:00)
[2021-07-24 07:20] LABS: Basophils # (auto) 0 10 ^3/uL (0-0.2); Basophils % (auto) 0.1 % (0.0-2.0); Eosinophils # (auto) 0 10 ^3/uL (0-0.8); Hematocrit 27.3 % (41.0-53.0); Hemoglobin 9.1 g/dL (13.5-17.5); Lymphocytes # (auto) 0.4 10 ^3/uL (0.4-5.4); Lymphocytes % (auto) 10.2 % (10.0-50.0); Mean Corpuscular Hemoglobin 31.2 pg (28.0-32.0); Mean Corpuscular Hgb Conc. 33.2 g/dL (32.0-36.0); Mean Corpuscular Volume 93.9 fL (80.0-100.0); Monocytes # (auto) 0.2 10 ^3/uL (0-1.3); Monocytes % (auto) 6.4 % (0.0-12.0); Neutrophils # (auto) 2.9 10 ^3/uL (1.6-8.6); Neutrophils % (auto) 83.3 % (37.0-80.0); Nucleated Red Blood Cells % 0.2 %; Red Blood Cells 2.91 10^6/uL (4.5-5.90); Red Cell Distribution Width 19.2 % (11.8-14.3); White Blood Cell 3.5 10^3/uL (4.4-10.8)
[2021-07-24 07:41] LABS: Potassium 4.7 mmol/L (3.5-5.1)
[2021-07-24 07:48] LABS: Albumin 3.1 g/dL (3.4-5.0); BUN/Creatinine Ratio 8.3; Calcium 8.2 mg/dL (8.5-10.1)
[2021-07-24 07:50] LABS: Bilirubin, Total 0.6 mg/dL (0.2-1.0); Total Protein 7.7 g/dL (6.4-8.2)
[2021-07-24] MEDS: SEVELAMER 800 MG TAB PO SCH ×3 (08:12→17:34)
[2021-07-24 09:51] VITALS: BP 147/91
[2021-07-24] MEDS: SACUBITRIL-VALSARTAN 24mg/26mg TAB PO SCH ×2 (10:00→20:54)
[2021-07-24] MEDS: CARVEDILOL 3.125 MG TAB PO SCH ×2 (10:00→20:54)
[2021-07-24] MEDS: ASPirin 81 mg TAB PO SCH (10:26)
[2021-07-24] MEDS: DexAMETHasone SOD PHOS 10MG/1ML VIAL INJ IV SCH (10:26)
[2021-07-24] MEDS: IVERMECTIN 3 MG TAB PO SCH (10:27)
[2021-07-24] MEDS: ZINC SULFATE 220mg CAP or TAB PO SCH (10:27)
[2021-07-24] MEDS: B-COMPLEX W/ C & FOLIC ACID(NEPHROVITE TAB) PO SCH (10:27)
[2021-07-24] MEDS: PANTOPRAZOLE 40 MG TAB PO SCH (10:27)
[2021-07-24] MEDS: AZITHROMYCIN 250 MG TAB PO SCH (10:28)
[2021-07-24] MEDS: CHOLECALCIFEROL (VITD3) 2,000 UNIT CAP/TAB PO SCH (10:28)
[2021-07-24] MEDS: ASCORBIC ACID 500 MG TAB PO SCH ×2 (10:28→20:55)
[2021-07-24] MEDS ORDERED: ALBUAER3 IN (12:55)
[2021-07-24] MEDS ORDERED: SACU1TAB PO (12:55)
[2021-07-24] MEDS ORDERED: AZIT500T66 PO (12:55)
[2021-07-24] MEDS ORDERED: ATO40T PO (12:55)
[2021-07-24] MEDS ORDERED: CAR3125T PO (12:55)
[2021-07-24] MEDS: REMDESIVIR 100mg 100 MG in SODIUM CHL 0.9% 230 ML IV SCH (15:55)
[2021-07-24 17:48] VITALS: BP 145/89
[2021-07-24] MEDS: ATORVASTATIN 20 MG TAB PO SCH (20:55)
[2021-07-24 21:00] VITALS: BP 140/88
[2021-07-24] MEDS ORDERED: EPOETIN ALFA-EPBX 4,000 UNIT/ML VIAL SC ONE (21:00)
== END 2021-07-24 21:15 | disposition home or self-care (01) | DRG 177 ==
LOC: ER 13:35 → OVERFLOW 07-19 05:41 → CENTRAL 07-19 13:42 → TELE-CENTR 07-19 15:28 → TELE-WESTW 07-20 05:07
PROVIDERS: ADMIT Nurse Practitioner; ATTEND Family Medicine
PROC: 4A023N8 Measurement of Cardiac Sampling and Pressure, Bilateral, Percutaneous Approach (ICD-10-PCS; principal; 2021-07-20)
PROC: B211YZZ Fluoroscopy of Multiple Coronary Arteries using Other Contrast (ICD-10-PCS; 2021-07-20)
PROC: B215YZZ Fluoroscopy of Left Heart using Other Contrast (ICD-10-PCS; 2021-07-20)
PROC: 5A1D70Z Performance of Urinary Filtration, Intermittent, Less than 6 Hours Per Day (ICD-10-PCS; 2021-07-20)
PROC: XW033E5 Introduction of Remdesivir Anti-infective into Peripheral Vein, Percutaneous Approach, New Technology Group 5 (ICD-10-PCS; 2021-07-20)
PROC: 5A1D70Z Performance of Urinary Filtration, Intermittent, Less than 6 Hours Per Day (ICD-10-PCS; 2021-07-22)
PROC: 5A1D70Z Performance of Urinary Filtration, Intermittent, Less than 6 Hours Per Day (ICD-10-PCS; 2021-07-24)
DX: U07.1 COVID-19 (principal); J12.82 Pneumonia due to coronavirus disease 2019; I50.23 Acute on chronic systolic (congestive) heart failure; N18.6 End stage renal disease; I21.A1 Myocardial infarction type 2; J96.21 Acute and chronic respiratory failure with hypoxia; I42.9 Cardiomyopathy, unspecified; I31.4 Cardiac tamponade; I13.2 Hypertensive heart and chronic kidney disease with heart failure and with stage 5 chronic kidney disease, or end stage renal disease; D63.1 Anemia in chronic kidney disease; E87.5 Hyperkalemia; I25.10 Atherosclerotic heart disease of native coronary artery without angina pectoris; E11.22 Type 2 diabetes mellitus with diabetic chronic kidney disease; F41.9 Anxiety disorder, unspecified; I27.20 Pulmonary hypertension, unspecified; Z99.2 Dependence on renal dialysis; Z82.49 Family history of ischemic heart disease and other diseases of the circulatory system
CPT/HCPCS: 36415; 36600; 71045; 73070; 73560; 80048; 80053; 82306; 82728; 82805; 82962; 83036; 83605; 83615; 83735; 83880; 84443; 84484; 85007; 85025; 85027; 85379; 85610; 85730; 86141; 87081; 87340; 87426; 90935; 93005; 93306; 99152; 99153; C1751; G0378; J1100; J1642; J1815; J2250; J7060; Q9967

== ENCOUNTER 2021-07-28 11:05 | Inpatient (IN) | payer MEDICARE, MEDICAID ==
[~2021-07-28] VITALS: Ht 175.3 cm; Wt 77.1 kg
[~2021-07-28 11:05] MED LIST changes: +ALBUAER3 IN; +ATO40T PO; +AZIT500T66 PO; +CAR3125T PO; +SACU1TAB PO
[2021-07-28] MEDS ORDERED: NALOXONE HCL 0.4 MG/ML VIAL ONE (11:38)
[2021-07-28] MEDS ORDERED: LORazepam 2MG/ML-1ML VIAL ONE (11:42)
[2021-07-28] MEDS ORDERED: diphenhdrAMINE HCL 50 MG/1 ML VL ONE (11:59)
[2021-07-28] MEDS ORDERED: NALOXONE HCL 0.4 MG/ML VIAL IV ONE (12:00)
[2021-07-28] MEDS ORDERED: LORazepam 2MG/ML-1ML VIAL IV ONE (12:00)
[2021-07-28] MEDS ORDERED: methylPREDNISolone SOD SUCC 125 MG/2 ML VL ONE (12:00)
[2021-07-28] MEDS ORDERED: FAMOTIDINE (10MG/ML) 2ML VL IV ONE ×2 (12:02→12:30)
[2021-07-28 12:03] LABS: Basophils # (auto) 0 10 ^3/uL (0-0.2); Basophils % (auto) 0.5 % (0.0-2.0); Eosinophils # (auto) 0.2 10 ^3/uL (0-0.8); Eosinophils % (auto) 4.7 % (0.0-7.0); Hematocrit 29.7 % (41.0-53.0); Hemoglobin 9.8 g/dL (13.5-17.5); Lymphocytes # (auto) 0.6 10 ^3/uL (0.4-5.4); Lymphocytes % (auto) 17.6 % (10.0-50.0); Mean Corpuscular Hemoglobin 30.6 pg (28.0-32.0); Mean Corpuscular Hgb Conc. 32.9 g/dL (32.0-36.0); Monocytes # (auto) 0.4 10 ^3/uL (0-1.3); Monocytes % (auto) 10.2 % (0.0-12.0); Neutrophils # (auto) 2.4 10 ^3/uL (1.6-8.6); Nucleated Red Blood Cells % 0.3 %; Red Blood Cells 3.19 10^6/uL (4.5-5.90); Red Cell Distribution Width 20.3 % (11.8-14.3); White Blood Cell 3.7 10^3/uL (4.4-10.8)
[2021-07-28 12:19] LABS: Albumin 3.3 g/dL (3.4-5.0); Calcium 8.7 mg/dL (8.5-10.1); Magnesium 3.3 mg/dL (1.6-2.6); Potassium 4.5 mmol/L (3.5-5.1)
[2021-07-28 12:26] LABS: BUN/Creatinine Ratio 7.9; Bilirubin, Total 0.5 mg/dL (0.2-1.0); Total Protein 7.7 g/dL (6.4-8.2)
[2021-07-28] MEDS ORDERED: diphenhdrAMINE HCL 50 MG/1 ML VL IV ONE (12:30)
[2021-07-28] MEDS ORDERED: methylPREDNISolone SOD SUCC 125 MG/2 ML VL IV ONE (12:30)
[2021-07-28] MEDS ORDERED: NITROGLYCERIN 0.4 MG SL TAB SL PRN (13:30)
[2021-07-28] MEDS ORDERED: MORPHINE SULFATE INJECTION 2 MG/ML SYRG IV PRN ×2 (13:30)
[2021-07-28] MEDS ORDERED: LORazepam 0.5 MG TAB PO PRN (13:30)
[2021-07-28] MEDS ORDERED: HYDROcodone-ACET 5/325MG TAB PO PRN (13:30)
[2021-07-28] MEDS ORDERED: ALUM & MAG HYDROX-SIMETH LIQ(MAALOX) 30 ML PO PRN (13:30)
[2021-07-28] MEDS ORDERED: DOCUSATE SOD 100 MG CAP PO PRN (13:30)
[2021-07-28] MEDS ORDERED: ACETAMINOPHEN 325 MG TAB PO PRN (13:30)
[2021-07-28] MEDS ORDERED: ONDANSETRON HCL 4 MG/2 ML VIAL IV PRN (13:30)
[2021-07-28] MEDS: LACTULOSE 20Gm/30ML SOLN PO SCH ×2 (14:00→22:00)
[2021-07-28] MEDS ORDERED: LORazepam 2MG/ML-1ML VIAL IV PRN (14:15)
[2021-07-29 00:50] VITALS: BP 132/70
== END 2021-07-29 01:00 | disposition left against medical advice (07) | DRG 947 ==
LOC: ER 11:05 → EDBD 11:05 → TELE 13:22
PROVIDERS: ADMIT Family Medicine; ATTEND Family Medicine
DX: R41.82 Altered mental status, unspecified (principal); N18.6 End stage renal disease; D61.818 Other pancytopenia; E46 Unspecified protein-calorie malnutrition; E72.20 Disorder of urea cycle metabolism, unspecified; I13.2 Hypertensive heart and chronic kidney disease with heart failure and with stage 5 chronic kidney disease, or end stage renal disease; I50.22 Chronic systolic (congestive) heart failure; E87.70 Fluid overload, unspecified; F41.9 Anxiety disorder, unspecified; Z20.822 Contact with and (suspected) exposure to COVID-19; R06.03 Acute respiratory distress; Z53.29 Procedure and treatment not carried out because of patient's decision for other reasons; E11.22 Type 2 diabetes mellitus with diabetic chronic kidney disease; Z68.25 Body mass index [BMI] 25.0-25.9, adult; Z82.49 Family history of ischemic heart disease and other diseases of the circulatory system; Z86.16 Personal history of COVID-19; Z99.2 Dependence on renal dialysis
CPT/HCPCS: 36415; 36600; 70450; 71045; 72125; 80053; 80307; 80320; 82140; 82805; 83735; 83880; 84484; 85025; 87426; 93005; 96374; 96375; 99291; G0378; J3490